=== PATIENT | female | born 1955 | race American Indian/Alaskan Native ===

== ENCOUNTER 2019-03-06 06:22 | Day surgery (SDC) | payer OTHER ==
[2019-03-06] MEDS ORDERED: SODIUM CHLORIDE 0.9% 1000 ML 1,000 ML ONE (07:18)
[2019-03-06] MEDS ORDERED: SODIUM CHLORIDE 0.9% 1000 ML 1,000 ML IV SCH (07:30)
--- NOTE | 2019-03-06 07:33 | Anesthesia Consultation ---
Anesthesia Consult and Med Hx Date of service: 03/06/19 - Airway Anesthetic Teeth Evaluation: Good ROM Head & Neck: Adequate Mental/Hyoid Distance: Adequate Mallampati Class: Class II Intubation Access Assessment: Probably Good - Pre-Operative Health Status ASA Pre-Surgery Classification: ASA2, ASA3 Proposed Anesthetic Plan: MAC - Pulmonary Hx Smoking: No Hx Sleep Apnea: No - Cardiovascular System Hx Hypertension: Yes - Endocrine Hx Liver Disease: Yes (Hyperlipidemia) Hx Non-Insulin Dependent Diabetes: Yes
--- NOTE | 2019-03-06 07:35 | Anesthesia Day of Surgery ---
Anesthesia Day of Surgery - Day of Surgery Patient Examined: Yes Patient H&P Reviewed: Yes Patient is NPO: Yes Beta Blockers: Yes
[2019-03-06] MEDS ORDERED: PROPOFOL 200 MG/20 ML VIAL IV ONE ×2 (07:40)
[2019-03-06] MEDS ORDERED: WATER FOR IRRIG STERILE 250 ML BOTTLE IR ONE (07:44)
[2019-03-06] MEDS ORDERED: WATER FOR IRRIG STERILE 1,000 ML BOTTLE ONE (07:44)
--- NOTE | 2019-03-06 08:19 | Operative Report ---
Operative Report Operative Report: DOS: 03/06/19 SURGEON: Jaime Manuel MD COLONOSCOPY with snare polypectomy and biopsy polypectomy REPORT PREOPERATIVE AND POSTOPERATIVE DIAGNOSIS: Positive cologuard test DESCRIPTION OF PROCEDURE: The colonoscope was passed to the cecum as identified by the ileocecal valve and appendiceal orifice. Scope was carefully withdrawn. Retroflexion was performed in the rectum. At the end of procedure, the scope was cleaned using normal technique. Vital signs monitored continuously throughout. SEDATION: Provided by [facility]. Quality of the prep was Poor COMPLICATIONS: None. ESTIMATED BLOOD LOSS: Minimal FINDINGS: * Scattered diverticulosis throughout the entire colon * 5 mm sessile polyp in the cecum, removed by cold snare polypectomy * 2 mm sessile polyp in the cecum removed by cold biopsy polypectomy * 3 mm sessile polyp in the rectum, removed by cold biopsy polypectomy * Moderate to large amount of thick liquid stool throughout most of the colon significantly limiting views so that small or large polyps could be missed. No masses or malignancies seen however RECOMMENDATIONS: * Given quality of the colon cleanse and polyps, recommend repeat colonoscopy in 6-12 months with a full two day cleanse
[2019-03-06 09:04] VITALS: BP 125/69
--- NOTE | 2019-03-06 11:25 | Post Anesthesia Evaluation ---
- Post Anesthesia Evaluation Patient Participated: Yes Airway Patent: Yes Stable Respiratory Function: Yes Nausea/Vomiting: No Temp > 96.8F: Yes Pain Manageable: Yes Adequeate Hydration: Yes Anesthesia Complications: No Block Receding Appropriately: Not Applicable Patient on Ventilator: No
== END 2019-03-06 06:23 | disposition home or self-care (01) ==
LOC: GIO 06:22
PROVIDERS: ATTEND Student in an Organized Health Care Education/Training Program
DX: R19.5 Other fecal abnormalities (principal); D12.0 Benign neoplasm of cecum; D12.8 Benign neoplasm of rectum; E78.00 Pure hypercholesterolemia, unspecified; I10 Essential (primary) hypertension; E11.9 Type 2 diabetes mellitus without complications; Z79.899 Other long term (current) drug therapy; Z80.0 Family history of malignant neoplasm of digestive organs
CPT/HCPCS: 45380; 45385; 82962; 88305; J2704; J7030